=== PATIENT | male | born 1980 | race Caucasian/White ===

== ENCOUNTER 2019-05-08 14:47 | Emergency (ER) | payer SELFPAY ==
[2019-05-08] MEDS ORDERED: Lidocaine 1% w/Epinephrine 1:100K 20 ML VIAL ONE (15:01)
[2019-05-08] MEDS ORDERED: Ondansetron ODT 4 MG TAB ONE (15:22)
--- NOTE | 2019-05-08 15:26 | RAD ---
LEFT FOREARM 2 VIEWS: Date: 05/08/19 HISTORY: Injury left forearm. FINDINGS: No evidence of fracture. No osseous abnormality. Evidence of soft tissue disruption consistent with h istory of laceration. IMPRESSION: No osseous abnormality. POS: [facility]
[2019-05-08] MEDS ORDERED: Adacel (T-DAP) 0.5 ML SYRINGE ONE (15:49)
[2019-05-08] MEDS ORDERED: Bacitracin 1 PK ONE (15:49)
== END 2019-05-08 15:55 | disposition home or self-care (01) ==
LOC: ERS 14:47
DX: S41.112A Laceration without foreign body of left upper arm, initial encounter (principal); W25.XXXA Contact with sharp glass, initial encounter
CPT/HCPCS: 12002; 90471; 90715; J2001; Q0162

== ENCOUNTER 2019-05-17 06:32 | Emergency (ER) | payer SELFPAY | END 2019-05-17 07:40 | disposition home or self-care (01) | LOC: ERS 06:32 | DX: S51.812D Laceration without foreign body of left forearm, subsequent encounter (principal) ==